=== PATIENT | male | born 1990 | race Hispanic/Latino ===

== ENCOUNTER 2017-09-15 17:27 | Emergency (ER) | payer SELFPAY ==
[2017-09-15] MEDS ORDERED: DEXAMETHASONE SOD PHOSPHATE 10MG/ML 1ML VIAL ONE (17:46)
[2017-09-15] MEDS ORDERED: KETOROLAC TROMETHAMINE 60 MG/2 ML VIAL ONE (17:46)
== END 2017-09-15 18:36 | disposition home or self-care (01) ==
LOC: EDH 17:27
DX: J02.9 Acute pharyngitis, unspecified (principal); Z72.0 Tobacco use
CPT/HCPCS: 96372 ×2; 99284; J1100; J1885

== ENCOUNTER 2018-05-26 12:42 | Emergency (ER) | payer OTHER | END 2018-05-26 14:33 | disposition home or self-care (01) | LOC: EDH 12:42 | DX: S43.085A Other dislocation of left shoulder joint, initial encounter (principal); Z72.0 Tobacco use; X50.0XXA Overexertion from strenuous movement or load, initial encounter; Y93.89 Activity, other specified; Y92.098 Other place in other non-institutional residence as the place of occurrence of the external cause; Y99.8 Other external cause status | CPT/HCPCS: 23650; 73020; 73030 ==

== ENCOUNTER 2021-05-12 13:41 | Emergency (ER) | payer SELFPAY ==
[~2021-05-12] VITALS: Ht 180.3 cm; Wt 81.6 kg
[2021-05-12 13:43] VITALS: BP 142/85
== END 2021-05-12 16:00 | disposition left against medical advice (07) ==
LOC: EDH 13:41
DX: M54.2 Cervicalgia (principal); Z53.21 Procedure and treatment not carried out due to patient leaving prior to being seen by health care provider